=== PATIENT | female | born 1980 | race Caucasian/White ===

== ENCOUNTER 2021-08-27 18:52 | Emergency (ER) | payer OTHER, SELFPAY ==
--- NOTE | ~2021-08-27 | CT_ITS ---
EXAMINATION: CT CERVICAL SPINE WITHOUT CONTRAST CLINICAL INFORMATION: Fall, back injury. COMPARISON: None TECHNIQUE: Axial, sagittal and coronal images of the cervical spine were obtained. This CT examination was performed using dose optimization techniques as appropriate, variously including the following: *Automated exposure control *Adjustment of mA and/or kV according to patient size (this includes techniques or standardized protocols for targeted exams where dose is matched to indication/reason for exam; i.e. extremities or head) *Use of iterative reconstruction technique DLP: 1048 mGy-cm FINDINGS: The atlantooccipital and atlantoaxial articulations remain well aligned. Straightening of the normal cervical lordosis. Otherwise, there is anatomic alignment of the vertebral bodies and posterior elements. No evidence of acute fracture or subluxation. The vertebral body heights and disc spaces are maintained. There is no prevertebral soft tissue swelling. There is a 7 mm hypoattenuating nodule in the right lobe of the thyroid, which does not meet size criteria for further workup. Remaining cervical soft tissues are normal in appearance. The lung apices demonstrate no abnormalities. CT/CT cervical spine wo con IMPRESSION: No acute cervical abnormalities.
--- NOTE | ~2021-08-27 | CT_ITS ---
EXAMINATION: CT THORACIC SPINE WITHOUT CONTRAST CT LUMBAR SPINE WITHOUT CONTRAST CLINICAL INFORMATION: Fall with back injury COMPARISON: None TECHNIQUE: Multidetector volumetric imaging of the thoracic and lumbar spine performed without IV contrast. Coronal and sagittal reformatted images are obtained and reviewed. This CT examination was performed using dose optimization techniques as appropriate, variously including the following: *Automated exposure control *Adjustment of mA and/or kV according to patient size (this includes techniques or standardized protocols for targeted exams where dose is matched to indication/reason for exam; i.e. extremities or head) *Use of iterative reconstruction technique DLP: 2815 mGy-cm, in conjunction with the cervical spine CT. FINDINGS: No acute fracture or subluxation. Vertebral body height and alignment is maintained. Disc spaces are maintained. Mild facet arthropathy of the lumbar spine. Posterior elements are intact. Tiny multilevel endplate osteophytes. The sacroiliac joints are symmetric. The visualized lungs are clear. The visualized retroperitoneal structures show no acute abnormality. Symmetric paraspinal musculature. CT/CT thoracic spine wo con IMPRESSION: No acute abnormality of the thoracic or lumbar spine.
--- NOTE | ~2021-08-27 | CT_ITS ---
EXAMINATION: CT THORACIC SPINE WITHOUT CONTRAST CT LUMBAR SPINE WITHOUT CONTRAST CLINICAL INFORMATION: Fall with back injury COMPARISON: None TECHNIQUE: Multidetector volumetric imaging of the thoracic and lumbar spine performed without IV contrast. Coronal and sagittal reformatted images are obtained and reviewed. This CT examination was performed using dose optimization techniques as appropriate, variously including the following: *Automated exposure control *Adjustment of mA and/or kV according to patient size (this includes techniques or standardized protocols for targeted exams where dose is matched to indication/reason for exam; i.e. extremities or head) *Use of iterative reconstruction technique DLP: 2815 mGy-cm, in conjunction with the cervical spine CT. FINDINGS: No acute fracture or subluxation. Vertebral body height and alignment is maintained. Disc spaces are maintained. Mild facet arthropathy of the lumbar spine. Posterior elements are intact. Tiny multilevel endplate osteophytes. The sacroiliac joints are symmetric. The visualized lungs are clear. The visualized retroperitoneal structures show no acute abnormality. Symmetric paraspinal musculature. CT/CT lumbar spine wo con IMPRESSION: No acute abnormality of the thoracic or lumbar spine.
[2021-08-27 20:45] VITALS: BP 172/95; PULSE 78; RESP 12; TEMP 37.2; O2SAT 98; BMI 38.9
[2021-08-27] MEDS: diazePAM 5 MG TABLET PO (21:37)
[2021-08-27] MEDS: oxyCODONE HCl Immed Release 5 MG TABLET PO (21:37)
--- NOTE | 2021-08-27 21:41 | ED_ITS ---
HPI - Fall General Chief Complaint: Fall Stated Complaint: work inj Time Seen by Provider: 08/27/21 21:20 Source: patient Mode of arrival: ambulatory Limitations: no limitations History of Present Illness HPI Narrative: 41-year-old female presents with neck and back pain after fall sustained at work. She was evaluated at [facility]/urgent care earlier today and given a C-collar and was referred to the emergency department. Patient arrived to this facility by private vehicle. Patient is ambulatory upon arrival. MD complaint: fall Onset (ago): hour(s) (Within hours of arrival) Fall from: standing Fall witnessed: yes, by bystander Place fall occurred: work Loss of consciousness: none Prolonged down time: no Symptoms prior to fall: none Context: tripped/slipped Location of injury: neck and back Severity: severe Severity scale (1-10): 9 Quality: aching and spasming Associated symptoms (after fall): neck pain Related Data Previous Rx's Medication Instructions Recorded cyclobenzaprine 10 mg tablet 10 mg PO TID PRN #14 tab 08/28/21 Allergies Allergy/AdvReac Type Severity Reaction Status Date / Time egg Allergy Itching Verified 08/27/21 20:44 Egg Derived Allergy Itching Verified 08/27/21 20:44 shellfish derived Allergy Hives Verified 08/27/21 20:44 Review of Systems Review of Systems: Constitutional: No Fever, No Chills ENT/Mouth: No Ear Pain, No Hoarseness, No sore throat Eyes: No Eye Pain, No Swelling, No Redness, No Foreign Body Cardiovascular: No Chest Pain, No SOB Respiratory: No Cough, No Dyspnea Gastrointestinal: No Nausea, No Vomiting, No Diarrhea, No abdominal Pain Genitourinary: No Dysuria, No Hematuria Musculoskeletal: positive neck and lumbar spine pain, No Myalgias, No Joint Swelling Skin: No Skin lacerations, No rash Neuro: No Weakness, No Numbness, No Paresthesias, No Loss of Consciousness, No Dizziness, No Headache Psych: No Anxiety/Panic, No Depression Heme/Lymph: no easy bruising, no Lymphadenopathy Endocrine: No Polyuria, No Polydipsia Yes all other systems are reviewed and are negative PMFSH Past Medical History Attestation statement: The following information was validated with the patient. Source: old records reviewed Medical History Hypertension Social History Social History Advance Directives: No Advance Directives Information Provided: No Physical Exam Vital Signs: Vital Signs: Last Vital Signs Temp 98.9 F 08/27/21 20:45 Pulse 72 08/28/21 00:21 Resp 16 08/28/21 00:21 BP 174/85 H 08/28/21 00:21 Pulse Ox 97 08/28/21 00:21 Body Mass Index 38.9 Appearance: Alert. Oriented X3. Moderate emotional distress. Head: Normal external exam. Normocephalic. Atraumatic. No Hawk signs noted. No raccoon eyes noted Eyes: PERRLA. EOMI. Conjunctiva and sclera normal. Eyelids normal. ENT: TM's Normal. Pharynx normal. Uvula midline. Moist mucous membranes. No trismus noted. No drooling noted. No muffled voice noted. Neck: Normal inspection. Neck supple. No adenopathy. Vertebral tenderness noted to the cervical, thoracic and lumbar spine. No step-offs noted. CVS: Normal heart rate and rhythm. Heart sound normal. No murmurs noted. Pulses equal to all extremities. Respiratory: No respiratory distress. Painless inspiration. Breath sounds normal . No wheezes/rales/rhonchi noted. Chest nontender. No accessory muscle usage noted or decreased air movement noted. Abdomen: Soft and nontender. Bowel sounds normal in all 4 quadrants. No distention noted. No organomegaly noted. No visible injury noted. Back: No CVA tenderness. Full range of motion noted. Skin: Skin warm and dry. Normal skin color. Normal skin turgor. No rashes/lesions/lacerations noted. Extremities: No lower extremity edema. Extremities exhibit normal range of motion. Extremities nontender. Neuro: cranial nerves 2-12 intact, no focal neural deficits, strength 5/5 to all extremities, No motor deficit. No sensory deficit. Patellar Reflexes normal. Course Course Course Narrative: 41-year-old female presents to this facility ambulatory in a C-collar. Stated that she was evaluated at [facility] or urgent care earlier today for a fall while at work at 11:30 a.m. Patient stated that she slipped and fell on an oily substance was on the floor. Patient states to be anxious, is crying, and is ambulating slowly. Gait is well balanced and well coordinated. 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 She drove herself to the [employer] facility. Patient denies loss of sensation, symptoms indicating cauda equina, head trauma, and loss of consciousness. Physical exam does not indicate any bruising, abrasions, or visible injury. Vertebral spine is tender to palpation throughout, no vertebral step-offs noted. Patellar reflexes are normal brisk capillary refill to all extremities. Will order CT scan of cervical thoracic and lumbar spine. U preg is negative. CT scans are negative for acute findings requiring emergent intervention. Will treat for cervical and lumbar spasm and muscular strain. Will provide muscle relaxers and have patient follow-up with [facility] as needed. Patient verbalized understanding of and agrees to plan of care discharge home. MDM - Fall MDM Narrative Medical decision making narrative: Cervical and lumbar strain Differential Diagnosis Differential diagnosis: Likely fracture and compression fracture Medical Records Attestation: I reviewed the patient's medical records. Lab Data Attestation: I reviewed the patient's lab results. Labs: Lab Results 08/27/21 Range/Units 22:48 Urine Test NEGATIVE (NEGATIVE) Imaging Data CT cervical, thoracic and lumbar spine: Attestation: I personally reviewed and interpreted this imaging study as follows: Radiologist's impression: EXAMINATION: CT CERVICAL SPINE WITHOUT CONTRAST CLINICAL INFORMATION: Fall, back injury.? COMPARISON: None? TECHNIQUE: Axial, sagittal and coronal images of the cervical spine were obtained. ? This CT examination was performed using dose optimization techniques as appropriate, variously including the following: *Automated exposure control *Adjustment of mA and/or kV according to patient size (this includes techniques or standardized protocols for targeted exams where dose is matched to indication/reason for exam; i.e. extremities or head) *Use of iterative reconstruction technique DLP: 1048 mGy-cm FINDINGS: The atlantooccipital and atlantoaxial articulations remain well aligned. Straightening of the normal cervical lordosis. Otherwise, there is anatomic alignment of the vertebral bodies and posterior elements. No evidence of acute fracture or subluxation. The vertebral body heights and disc spaces are maintained. There is no prevertebral soft tissue swelling. There is a 7 mm hypoattenuating nodule in the right lobe of the thyroid, which does not meet size criteria for further workup. Remaining cervical soft tissues are normal in appearance. The lung apices demonstrate no abnormalities. CT/CT cervical spine wo con IMPRESSION: No acute cervical abnormalities.? ? FINDINGS: No acute fracture or subluxation. Vertebral body height and alignment is maintained. Disc spaces are maintained. Mild facet arthropathy of the lumbar spine. Posterior elements are intact. Tiny multilevel endplate osteophytes. The sacroiliac joints are symmetric. The visualized lungs are clear. The visualized retroperitoneal structures show no acute abnormality. Symmetric paraspinal musculature. ? CT/CT lumbar spine wo con IMPRESSION: No acute abnormality of the thoracic or lumbar spine.? Discharge Plan Discharge Clinical Impression: Cervical muscle strain Qualifiers: Encounter type: initial encounter Qualified Code(s): S16.1XXA - Strain of muscle, fascia and tendon at neck level, initial encounter Lumbar strain Qualifiers: Encounter type: initial encounter Qualified Code(s): S39.012A - Strain of muscle, fascia and tendon of lower back, initial encounter Fall Qualifiers: Encounter type: initial encounter Qualified Code(s): W19.XXXA - Unspecified fall, initial encounter Patient Disposition: Home, Self-Care Instructions: Cervical Strain (ED), Acute Low Back Pain (ED), R.I.C.E. Treatment (ED) Additional Instructions: You were evaluated for injuries sustained from a fall at work. CT scan of cervical spine, lumbar spine, and thoracic spine are negative for acute findings requiring emergent intervention. Please follow-up with [facility] as you may need physical therapy for these injuries. We prescribe cyclobenzaprine, which is a muscle relaxer. This medication can delay reaction time, increased risk for falls, and cause drowsiness. Do not drive or operate machinery while taking this medication. Thank you for choosing this emergency department for evaluation. Please follow-up with primary care physician as needed. Return to the emergency department for any new, concerning, or worsening symptoms. Prescriptions: New cyclobenzaprine 10 mg tablet 10 mg PO TID PRN (Reason: muscle spasm) Qty: 14 RF: 0 Referrals: [facility] [Provider Group] - 2 days (Cervical and lumbar strain sustained from a fall at work) Stand Alone Forms: Work/School Release Interventions: ED Discharge Assessment Last Done: 08/28/21 00:45
[2021-08-27 22:59] LABS: UPreg QC Valid YES; Urine Pregnancy NEGATIVE (NEGATIVE)
[2021-08-27 23:15] VITALS: RESP 16
[2021-08-28 00:21] VITALS: BP 174/85; PULSE 72; RESP 16; O2SAT 97
== END 2021-08-28 01:00 | disposition home or self-care (01) ==
PROVIDERS: Nurse Practitioner Family; Emergency Provider Emergency Medicine; PCP Internal Medicine
DX: S16.1XXA Strain of muscle, fascia and tendon at neck level, initial encounter (principal); S39.012A Strain of muscle, fascia and tendon of lower back, initial encounter; I10 Essential (primary) hypertension; W01.0XXA Fall on same level from slipping, tripping and stumbling without subsequent striking against object, initial encounter; Y93.9 Activity, unspecified; Y92.89 Other specified places as the place of occurrence of the external cause; Y99.0 Civilian activity done for income or pay
CPT/HCPCS: 72125; 72128; 72131; 81025; 99284